=== PATIENT | female | born 1980 | race Two or more races ===

== ENCOUNTER 2017-12-10 23:29 | Inpatient (IN) | payer OTHER ==
[~2017-12-10] VITALS: Ht 162.6 cm; Wt 54.4 kg
== END 2017-12-14 13:40 | disposition left against medical advice (07) | DRG 440 ==
LOC: ER 23:29 → ICU-2 12-11 09:25 → SEC-K 12-12 11:48 → MEDJ 12-12 14:22
PROC: BW40ZZZ Ultrasonography of Abdomen (ICD-10-PCS; principal; 2017-12-11)
DX: K85.00 Idiopathic acute pancreatitis without necrosis or infection (principal); I95.89 Other hypotension; E86.0 Dehydration

== ENCOUNTER 2020-05-25 21:54 | Emergency (ER) | payer OTHER ==
[~2020-05-25] VITALS: Ht 162.6 cm; Wt 56.7 kg
[~2020-05-25 21:54] MED LIST changes: -LEVSIN/SL0.125 MG SL; -PROTONIX40 MG PO
[2020-05-26] MEDS ORDERED: LEVSIN/SL0.125 MG SL (01:13)
[2020-05-26] MEDS ORDERED: PROTONIX40 MG PO (01:13)
== END 2020-05-26 01:33 | disposition home or self-care (01) ==
LOC: ER 21:54
DX: K86.1 Other chronic pancreatitis (principal)

== ENCOUNTER → 2020-05-25 | Emergency (ER) | payer OTHER ==
[~2020-05-25] VITALS: Ht 162.6 cm; Wt 56.7 kg
[~2020-05-25] MED LIST: IRON325 MG PO; KETO10TA2 PO; LEVSIN/SL0.125 MG SL; OXYC1TAB9 PO; PROTONIX40 MG PO
== END | disposition left against medical advice (07) ==
LOC: ER 14:45
DX: Z53.20 Procedure and treatment not carried out because of patient's decision for unspecified reasons (principal)

== ENCOUNTER → 2020-06-03 | Emergency (ER) | payer OTHER ==
[~2020-06-03] VITALS: Ht 160 cm; Wt 52.2 kg
[~2020-06-03] MED LIST changes: +LEVSIN/SL0.125 MG SL; +PROTONIX40 MG PO
== END | disposition left against medical advice (07) ==
LOC: ER 03:19
DX: F41.8 Other specified anxiety disorders (principal); Z11.52 Encounter for screening for COVID-19